=== PATIENT | male | born 1995 | race Caucasian/White ===

== ENCOUNTER → 2016-03-26 | Outpatient (CLI) | payer OTHER | END | disposition home or self-care (01) | LOC: C.RDSM 14:00 | PROVIDERS: ATTEND Family Medicine | DX: J06.9 Acute upper respiratory infection, unspecified (principal) ==

== ENCOUNTER → 2016-04-06 | Outpatient (CLI) | payer OTHER | END | disposition home or self-care (01) | LOC: C.RDSM 11:35 | PROVIDERS: ATTEND Family Medicine | DX: S93.492A Sprain of other ligament of left ankle, initial encounter (principal); X58.XXXA Exposure to other specified factors, initial encounter ==

== ENCOUNTER → 2016-04-20 | Outpatient (CLI) | payer OTHER ==
--- NOTE | 2016-04-20 09:41 | DIAGNOSTIC IMAGING REPORT ---
MRI left ankle LOWER EXT JOINT WITHOUT CLINICAL HISTORY: M25.372 pain TECHNIQUE: Multiaxial MRI acquisition COMPARISON STUDY: None FINDINGS: Signal characteristics of the osseous structures indicate moderate bone contusion of the inferior talus. Interosseous ligament is intact. Signal characteristics of all remaining osseous structures are unremarkable. There is no significant joint effusion. Collateral ligament complexes are intact. Ankle mortise is aligned anatomically. Structures of the plantar fascia appear to be intact. All major ligamentous and tendinous structures are intact. IMPRESSION: 1. Moderate bone contusion inferior talus. 2. Study is otherwise negative Electronically signed by: Stanford Carolina M.D. 04/20/2016 9:40 AM Dictated Date/Time: 04/20/2016 9:28 AM
== END | disposition home or self-care (01) ==
LOC: C.MRI 07:18
PROVIDERS: ATTEND Orthopaedic Surgery
DX: S90.02XA Contusion of left ankle, initial encounter (principal); X58.XXXA Exposure to other specified factors, initial encounter